=== PATIENT | female | born 1975 | race Caucasian/White ===

== ENCOUNTER 2018-09-01 06:15 | Day surgery (SDC) | payer BC ==
[2018-09-01] MEDS ORDERED: Propofol 200 MG/20 ML SDV ONE (06:58)
[2018-09-01] MEDS ORDERED: Lidocaine 2% 5 ML SDV ONE (06:58)
[2018-09-01] MEDS ORDERED: Midazolam 1 MG/ML 2 ML SDV ONE (06:58)
[2018-09-01] MEDS ORDERED: fentaNYL 100 MCG/2 ML SDV ONE (06:58)
[2018-09-01] MEDS: Lactated Ringers 1,000 ML IV SCH (07:07)
--- NOTE | 2018-09-01 07:19 | PCM.PREANE ---
Preanesthetic Assessment - Anesthesia/Transfusion/Family Hx Anesthesia History: Prior Anesthesia Without Reaction Family History of Anesthesia Reaction: No Transfusion History: Prior Transfusion Reaction Type of Transfusion Reactions: Reports: Other (see below) Other Type of Transfusion Reaction: amenia Intubation History: Unknown - Review of Systems General: No Symptoms Pulmonary: No Symptoms Cardiovascular: No Symptoms Gastrointestinal: No Symptoms Other: Reports: None - Physical Assessment NPO Status Date: 08/31/18 O2 Sat by Pulse Oximetry: 98 Respiratory Rate: 16 Vital Signs: Last Vital Signs Temp 97.5 F 09/01/18 07:06 Pulse 77 09/01/18 07:06 Resp 16 09/01/18 07:06 BP 140/78 09/01/18 07:06 Pulse Ox 98 09/01/18 07:06 Height: 4 ft 11 in Weight: 78.018 kg ASA Class: 2 Mental Status: Alert & Oriented x3 Airway Class: Mallampati = 2 Dentition: Reports: Normal Dentition ROM/Head Extension: Full Lungs: Clear to Auscultation, Normal Respiratory Effort Cardiovascular: Regular Rate, Regular Rhythm - Lab Values: Laboratory Last Values Urine HCG, Qual NEGATIVE (NEGATIVE) 09/01/18 06:50 - Allergies Allergies/Adverse Reactions: Allergies Allergy/AdvReac Type Severity Reaction Status Date / Time Penicillins Allergy Hives Verified 08/25/18 16:55 - Blood Blood Available: No - Anesthesia Plan Pre-Op Medication Ordered: None - Acknowledgements Anesthesia Type Planned: MAC Pt an Appropriate Candidate for the Planned Anesthesia: Yes Alternatives and Risks of Anesthesia Discussed w Pt/Guardian: Yes Pt/Guardian Understands and Agrees with Anesthesia Plan: Yes Additional Comments: PMH: htn, gerd PLAN: mac PreAnesthesia Questionnaire Cardiovascular History: Reports: Hypertension Respiratory History: Reports: Sleep Apnea Other Respiratory History: does not use CPAP Gastrointestinal History: Reports: GERD Other Gastrointestinal History: uses OTC meds for heartburn 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 Is checking blood sugar frequently and it has been "good" Hematologic History: Reports: Blood Transfusion(s) Other Hematologic History: had a blood transfusion in 1993 after and has been anemic since. She thinks it is from the transfusion - Past Surgical History GI Surgical History: Reports: Colonoscopy, EGD Female Surgical History: Reports: Section, Tubal Ligation Musculoskeletal Surgical History: Reports: Arthroscopic Knee - SUBSTANCE USE Smoking Status *Q: Former Smoker Tobacco Use Within Last Twelve Months: No Recreational Drug Use History: No - HOME MEDS Home Medications: Home Meds . [No Known Home Meds] 08/25/18 [History] - CURRENT (IN HOUSE) MEDS Current Meds: Current Medications Hydrocodone Bitart/Acetaminophen ([place] 325-5 Mg) 1 tab PO Q4H PRN PRN Reason: Pain Bupivacaine HCl/Epinephrine Bitart (Marcaine 0.25%/Epinephrine 1:200,000) 10 ml INJECT ONETIME ONE Stop: 09/01/18 08:01 Clindamycin Phosphate 600 mg/ (Premix) 50 mls @ 150 mls/hr IV ONETIME ONE Stop: 09/01/18 08:19 Lactated Ringer's (Ringers, Lactated) 1,000 mls @ 125 mls/hr IV ASDIRECTED ANTONIO Last Admin: 09/01/18 07:07 Dose: 125 mls/hr Discontinued Medications Fentanyl (Sublimaze) Confirm Administered Dose 100 mcg .ROUTE .STK-MED ONE Stop: 09/01/18 06:59 Lidocaine (Xylocaine-Mpf 2%) Confirm Administered Dose 5 ml .ROUTE .STK-MED ONE Stop: 09/01/18 06:59 Midazolam HCl (Versed 1 Mg/Ml) Confirm Administered Dose 2 mg .ROUTE .STK-MED ONE Stop: 09/01/18 06:59 Propofol (Diprivan 20 Ml) Confirm Administered Dose 200 mg .ROUTE .STK-MED ONE Stop: 09/01/18 06:59
[2018-09-01] MEDS ORDERED: Bupivacaine 0.25%/EPINEPHrine 1:200,000 10 ML SDV ONE (07:20)
[2018-09-01] MEDS: Clindamycin Phosphate in D5W 600 MG in Premix Bag 1 BAG IV ONE ×2 (07:23)
[2018-09-01] MEDS ORDERED: Bupivacaine 0.25%/EPINEPHrine 1:200,000 10 ML SDV INJECT ONE (08:00)
[2018-09-01] MEDS ORDERED: Acetaminophen/HYDROcodone 325-5 MG Tab PO PRN (08:00)
--- NOTE | 2018-09-01 10:09 | PCM48HPAN ---
Post Anesthesia Note - EVALUATION WITHIN 48HRS OF ANESTHETIC Vital Signs in Normal Range: Yes Patient Participated in Evaluation: Yes Respiratory Function Stable: Yes Airway Patent: Yes Cardiovascular Function Stable: Yes Hydration Status Stable: Yes Pain Control Satisfactory: Yes Nausea and Vomiting Control Satisfactory: Yes Mental Status Recovered: Yes Resp Rate: 18
--- NOTE | 2018-09-02 16:40 | PCM.OPNOTE ---
- General Post-Op/Procedure Note Date of Surgery/Procedure: 09/01/18 Operative Procedure(s): left carpal tunnel release Pre Op Diagnosis: left carpal tunnel Post-Op Diagnosis: Same Anesthesia Technique: Local, MAC Primary Surgeon: Julia Xiong Dairy Grazer: Romy Busch Complications: None Condition: Good
--- NOTE | 2018-09-02 17:22 | OR ---
SURGEON: BLANCA RAMIREZ MD DATE OF PROCEDURE: 09/01/2018 PREOPERATIVE DIAGNOSIS: Left carpal tunnel syndrome. POSTOPERATIVE DIAGNOSIS: Left carpal tunnel syndrome. PROCEDURE: Left carpal tunnel release. OVERSEER KOSHER KITCHEN: MARE Potter ANESTHESIA: Local MAC. INDICATIONS: Ms. Amato is a 42-year-old female, seen today in evaluation for left carpal tunnel syndrome. Risks and benefits were discussed with her including, but not limited to, bleeding, infection, damage to underlying or overlying structures, possible need for future interventions, and possible scarring. PROCEDURE IN DETAIL: After informed consent was obtained and placed on the chart, the patient was brought to the operating theater and laid in the supine position. After adequate local MAC anesthesia was obtained, the area was prepped and draped, and a time-out was completed to confirm side and site. Attention was then paid to transverse carpal ligament and after exsanguination of the arm and insufflation of the tourniquet, the dissection was carried through the skin and subcutaneous tissues over the transverse carpal ligament until breach of the ligament. Dissection was then carried distally and proximally under direct visualization. Once adequately released, the area was copiously irrigated with normal saline and closed with a 5-0 nylon stitch in a horizontal mattress fashion. The wound was dressed with Xeroform, fluffs, and a Kerlix gauze dressing, and a 2-inch Paolo wrap. The patient tolerated this well. All counts and needles were correct at the end of the case. FOLLOWUP INSTRUCTIONS: The patient will see us in 10 to 14 days, sooner if any problems, questions, or concerns. She was given a prescription for pain control. BARBIE / DINORA /[id number]
== END 2018-09-01 09:25 | disposition home or self-care (01) ==
LOC: MW.SDS 06:15
PROVIDERS: ATTEND Plastic Surgery
DX: G56.03 Carpal tunnel syndrome, bilateral upper limbs (principal); I10 Essential (primary) hypertension; E11.9 Type 2 diabetes mellitus without complications; D64.9 Anemia, unspecified; Z88.0 Allergy status to penicillin; Z87.891 Personal history of nicotine dependence
CPT/HCPCS: 64721; 81025; J2001; J2250; J2704; J3010; J3490; J7120

== ENCOUNTER 2018-09-15 06:27 | Day surgery (SDC) | payer BC ==
[2018-09-15] MEDS ORDERED: Propofol 200 MG/20 ML SDV ONE (07:22)
[2018-09-15] MEDS ORDERED: Lidocaine 2% 100 MG/5 ML Syringe ONE (07:23)
[2018-09-15] MEDS ORDERED: Bupivacaine 0.25%/EPINEPHrine 1:200,000 10 ML SDV ONE (07:31)
--- NOTE | 2018-09-15 07:33 | PCM.PREANE ---
Preanesthetic Assessment - Anesthesia/Transfusion/Family Hx Anesthesia History: Prior Anesthesia Without Reaction Family History of Anesthesia Reaction: No Transfusion History: Prior Transfusion Reaction Type of Transfusion Reactions: Reports: Other (see below) Other Type of Transfusion Reaction: caused chronic anemia Intubation History: Unknown - Review of Systems General: No Symptoms Pulmonary: No Symptoms Cardiovascular: No Symptoms Gastrointestinal: No Symptoms Neurological: No Symptoms Other: Reports: None - Physical Assessment Height: 1.5 m Weight: 78.018 kg ASA Class: 2 Mental Status: Alert & Oriented x3 Airway Class: Mallampati = 2 Dentition: Reports: Normal Dentition Thyro-Mental Finger Breadths: 2 Mouth Opening Finger Breadths: 2 ROM/Head Extension: Full Lungs: Clear to Auscultation, Normal Respiratory Effort Cardiovascular: Regular Rate, Regular Rhythm - Lab Values: Laboratory Last Values Urine HCG, Qual NEGATIVE (NEGATIVE) 09/15/18 07:00 - Allergies Allergies/Adverse Reactions: Allergies Allergy/AdvReac Type Severity Reaction Status Date / Time Penicillins Allergy Hives Verified 09/14/18 10:30 - Blood Blood Available: No - Anesthesia Plan Pre-Op Medication Ordered: None - Acknowledgements Anesthesia Type Planned: MAC Pt an Appropriate Candidate for the Planned Anesthesia: Yes Alternatives and Risks of Anesthesia Discussed w Pt/Guardian: Yes Pt/Guardian Understands and Agrees with Anesthesia Plan: Yes PreAnesthesia Questionnaire Cardiovascular History: Reports: Other (See Below) (BP tends to be on the low side) Respiratory History: Reports: Sleep Apnea Other Respiratory History: does not use CPAP Gastrointestinal History: Reports: GERD Other Gastrointestinal History: uses OTC meds for heartburn 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 Is checking blood sugar frequently and it has been "good" Hematologic History: Reports: Blood Transfusion(s) Other Hematologic History: had a blood transfusion in 1993 after and has been anemic since. She thinks it is from the transfusion - Past Surgical History GI Surgical History: Reports: Colonoscopy, EGD Female Surgical History: Reports: Section, Tubal Ligation Musculoskeletal Surgical History: Reports: Arthroscopic Knee, Carpal Tunnel ( left side 2 weeks ago) Other Musculoskeletal Surgeries/Procedures:: right knee arthroscopy for ligament repair - SUBSTANCE USE Smoking Status *Q: Former Smoker (quit 14 years ago) Tobacco Use Within Last Twelve Months: No Recreational Drug Use History: No - HOME MEDS Home Medications: Home Meds . [No Known Home Meds] 09/14/18 [History] - CURRENT (IN HOUSE) MEDS Current Meds: Current Medications Hydrocodone Bitart/Acetaminophen ([place] 325-5 Mg) 1 tab PO Q4H PRN PRN Reason: Pain Bupivacaine HCl/Epinephrine Bitart (Marcaine 0.25%/Epinephrine 1:200,000) 10 ml INJECT ONETIME ONE Stop: 09/15/18 08:01 Clindamycin Phosphate 600 mg/ (Premix) 50 mls @ 150 mls/hr IV ONETIME ONE Stop: 09/15/18 08:19 Lactated Ringer's (Ringers, Lactated) 1,000 mls @ 125 mls/hr IV ASDIRECTED ANTONIO Discontinued Medications Lidocaine HCl (Xylocaine 2%) Confirm Administered Dose 100 mg .ROUTE .STK-MED ONE Stop: 09/15/18 07:24 Propofol (Diprivan 20 Ml) Confirm Administered Dose 400 mg .ROUTE .STK-MED ONE Stop: 09/15/18 07:23
[2018-09-15] MEDS ORDERED: Bupivacaine 0.25%/EPINEPHrine 1:200,000 10 ML SDV INJECT ONE (08:00)
[2018-09-15] MEDS ORDERED: Clindamycin Phosphate in D5W 600 MG in Premix Bag 1 BAG IV ONE ×2 (08:00)
[2018-09-15] MEDS ORDERED: Acetaminophen/HYDROcodone 325-5 MG Tab PO PRN (08:00)
[2018-09-15] MEDS ORDERED: Lactated Ringers 1,000 ML IV SCH (08:00)
--- NOTE | 2018-09-15 15:47 | PCM.OPNOTE ---
- General Post-Op/Procedure Note Date of Surgery/Procedure: 09/15/18 Operative Procedure(s): right carpal tunnel release Pre Op Diagnosis: right carpal tunnel syndrome Post-Op Diagnosis: Same Anesthesia Technique: Local, MAC Primary Surgeon: Julia Xiong Automobile Mechanic Supervisor: Romy Busch Complications: None Condition: Good Free Text/Narrative:: Intake & Output 09/14/18 09/15/18 09/15/18 23:59 07:59 15:59 Intake Total 250 Balance 250
--- NOTE | 2018-09-15 22:44 | OR ---
SURGEON: BLANCA RAMIREZ MD DATE OF PROCEDURE: 09/15/2018 PREOPERATIVE DIAGNOSIS: Right carpal tunnel syndrome. POSTOPERATIVE DIAGNOSIS: Right carpal tunnel syndrome. PROCEDURE: Right carpal tunnel release. INTERNAL GRINDER TENDER: MARE Potter REASON FOR AND ROLE OF INTERNAL GRINDER TENDER: Retraction, prepping, draping, positioning and closure assistance. ANESTHESIA: Local MAC. INDICATIONS: Ms. Amato is a 42-year-old female seen today for right carpal tunnel release. Risks and benefits were discussed including but not limited to bleeding, infection, damage to underlying or overlying structures, possible need for future interventions, or possible scarring. PROCEDURE IN DETAIL: After informed consent was obtained placed on the chart, the patient was brought to the operating theater and laid in supine position. After adequate local MAC anesthesia was obtained, the area was prepped and draped. A time-out was completed to confirm side and site. Once adequately confirmed, the arm was exsanguinated. The tourniquet was insufflated to 200 mmHg, and dissection was carried then through the skin and subcutaneous tissues using a #15 blade. Once the ligament was breached, dissection was carried distally and proximally under direct visualization until complete release. Once adequately released, the area was irrigated and closed using a 5-0 nylon stitch in a horizontal mattress fashion. The wound was dressed with Xeroform, fluffs, and a Kerlix gauze dressing and a 2-inch Paolo wrap. The patient tolerated this well, and all counts and needles were correct at the end of the case. FOLLOWUP INSTRUCTIONS: The patient will see us in 10 to 14 days for suture removal; sooner if any problems, questions, or concerns. BARBIE / DINORA /[id number]
== END 2018-09-15 09:15 | disposition home or self-care (01) ==
LOC: MW.SDS 06:27
PROVIDERS: ATTEND Plastic Surgery
DX: G56.03 Carpal tunnel syndrome, bilateral upper limbs (principal); I10 Essential (primary) hypertension; E11.9 Type 2 diabetes mellitus without complications; E66.9 Obesity, unspecified; Z68.35 Body mass index [BMI] 35.0-35.9, adult; K21.9 Gastro-esophageal reflux disease without esophagitis; D64.9 Anemia, unspecified; G47.30 Sleep apnea, unspecified; Z87.891 Personal history of nicotine dependence; Z88.0 Allergy status to penicillin
CPT/HCPCS: 64721; 81025; J2001; J2704; J3490; J7120

== ENCOUNTER 2021-06-28 20:47 | Emergency (ER) | payer BC ==
[2021-06-29 00:06] LABS: CORONAVIRUS COVID-19 NAA POSITIVE (NEGATIVE); INFLUENZA A NAA NEGATIVE (NEGATIVE); INFLUENZA B NAA NEGATIVE (NEGATIVE)
[2021-06-29] MEDS ORDERED: Lactated Ringers 1,000 ML IV STA (00:11)
[2021-06-29] MEDS ORDERED: Ketorolac 30 MG/ML SDV IVPUSH ONE (00:11)
--- NOTE | 2021-06-29 00:29 | CR ---
INDICATION: Cough, shortness of breath TECHNIQUE: Chest radiograph 1 view COMPARISON: None FINDINGS: The sensitivity and specificity of the exam are severely limited by the patient`s body habitus. Mediastinum: The mediastinum is normal in appearance. The heart silhouette is normal in size and morphology. Lung: Patchy peripheral ground-glass opacities are present in the mid lower lung zones bilaterally, suspicious for COVID-19. No sign of pleural effusion seen. No pneumothorax is identified. Bone and Soft tissue: Unremarkable for age. IMPRESSION: 1. Patchy peripheral ground-glass opacities are present in the mid lower lung zones bilaterally, suspicious for COVID-19. Dictated by Vinny Dougherty MD @ 06/29/2021 12:26:37 AM Dictated by: Vinny Dougherty MD @ 06/29/2021 00:26:40 (Electronically Signed)
--- NOTE | 2021-06-29 01:00 | EDM.PDOC ---
ED HPI GENERAL MEDICAL PROBLEM - General Chief Complaint: Respiratory Problem Stated Complaint: FLU SYMPTOMS/COVID SYMPTOMS Time Seen by Provider: 06/28/21 23:24 - History of Present Illness INITIAL COMMENTS - FREE TEXT/NARRATIVE: CHIEF COMPLAINT(S): "I just cannot get any better." HISTORY OF PRESENT ILLNESS: This is a 45-year-old woman with a past medical history of hypertension and diabetes mellitus who comes to the emergency department with a chief complaint of "I just cannot get any better." The patient states "I just cannot get any better." The patient states that she needs help. She states that since June 15, 2021 she has been feeling sick. She states that she has been experiencing chills, body aches and dry heaving without any vomiting. She states that she is tried to eat but she just does not want to eat and is not hungry but is thirsty. She states that she does feel some short of breath but she denies any productive cough. She denies any chest pain, lower extremity edema, recent travel, recent surgery or prior history of DVT or PE. She states that she has not tried anything in the last couple of days therefore there are no relieving factors. She denies any other symptoms REVIEW OF SYSTEMS: Constitutional: Positive for fatigue and chills. Denies fever Eyes: Denies eye pain Ears, Nose, Mouth, & Throat: Denies earache Cardiovascular: Denies chest pain Respiratory: Positive for nonproductive cough and shortness of breath gastrointestinal: Positive for dry heaving. Denies Nausea, vomiting, diarrhea, hematochezia. Genitourinary: Denies hematuria Skin:Denies a rash MSK: Positive for body aches Neurological: Denies blurred vision, numbness, tingling, weakness psychiatric: Denies depression PAST MEDICAL HISTORY: As per history of present illness and as reviewed below otherwise noncontributory. SURGICAL HISTORY: As per history of present illness and as reviewed below otherwise noncontributory. SOCIAL HISTORY: As per history of present illness and as reviewed below otherwise noncontributory. FAMILY HISTORY: As per history of present illness and as reviewed below otherwise noncontributory. EXAMINATION OF ORGAN SYSTEMS/BODY AREAS: Constitutional: Blood pressure is 136/84, heart rate 99, respiratory rate 20 with an oxygen saturation of 94% on room air. General: Young woman who does not appear to be in acute distress Psychiatric: Appears apathetic with a flattened affect. Denies any SI or HI Eyes: No scleral icterus or conjunctival erythema ENMT: Dry mucous membranes. No pharyngeal erythema Cardiovascular: Regular, rate, and rhythm. No gallops, murmurs, or rubs. Bilateral upper extremity pulses symmetric and intact. No peripheral edema. No JVD. Respiratory: Lungs clear to auscultation bilaterally. No wheezes, rales, or rhonchi. Gastrointestinal: Soft, non-tender, non-distended. Normoactive bowel sounds Genitourinary: No suprapubic tenderness Musculoskeletal: Normal range of motion. Skin: No lesions or abrasions. Neurological: Alert, GCS 15 MEDICAL DECISION MAKING AND COURSE IN THE ED WITH INTERPRETATION/REVIEW OF DIAGNOSTIC STUDIES: This is a 45-year-old with man with a past medical history of diabetes mellitus and hypertension who comes to the emergency department with 2 weeks of viral-like symptoms who states that she has had decreased appetite who appears mildly dehydrated with borderline hypoxia. At this time we will provide the patient with 1 L of lactated Ringer's bolus given the dehydration on examination. We will provide the patient with Toradol for pain relief. Given her history we did obtain a x-ray and we will also obtain labs including Covid and influenza. I do not believe any further labs or imaging are indicated. The patient was amenable to this plan. DDx: COVID-19, pneumonia, influenza Laboratory: COVID is positive. Influenza negative. The radiological images were viewed by myself along with reading the report from the radiologist. Chest x-ray reveals patchy peripheral groundglass opacities in the mid and lower lung zones bilaterally. On reevaluation patient was able to tolerate p.o. The patient's vitals were normal at this time. I did discuss symptomatic treatment at home and encouraged the patient to continue with at least p.o. hydration. Patient is very apathetic and does not appear to be motivated. I did discuss with her at this time that she does not require inpatient admission and she needed to work on these things at home. Discussed if she had any worsening symptoms she should return to the emergency department. Given the duration of her symptoms the patient is not a candidate for monoclonal antibody therapy. She is amenable to discharge at this time and had no further questions DISPOSITION: The patient was discharged home in stable condition. The patient will follow up with primary care physician as soon as she is feeling better. CONDITION: Fair PROCEDURES: None FINAL IMPRESSION(S)/DIAGNOSES: 1. Acute COVID-19 pneumonia Reji Garcia M.D. - Related Data Allergies Allergy/AdvReac Type Severity Reaction Status Date / Time Penicillins Allergy Hives Verified 06/28/21 23:28 Home Meds: Home Meds . 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 Is checking blood sugar frequently and it has been "good" Hematologic History: Reports: Blood Transfusion(s) Other Hematologic History: had a blood transfusion in 1993 after and has been anemic since. She thinks it is from the transfusion - Past Surgical History GI Surgical History: Reports: Colonoscopy, EGD Female Surgical History: Reports: Section, Tubal Ligation Musculoskeletal Surgical History: Reports: Arthroscopic Knee, Carpal Tunnel Other Musculoskeletal Surgeries/Procedures:: right knee arthroscopy for ligament repair Social & Family History - Tobacco Use Second Hand Smoke Exposure: No - Caffeine Use Caffeine Use: Reports: None - Recreational Drug Use Recreational Drug Use: No ED ROS GENERAL - Review of Systems Review Of Systems: See Below ED EXAM, GENERAL - Physical Exam Exam: See Below Course - Vital Signs Last Recorded V/S: Last Vital Signs Temp 36.3 C 06/28/21 23:25 Pulse 81 06/29/21 03:30 Resp 14 06/29/21 03:30 BP 126/71 06/29/21 03:30 Pulse Ox 95 06/29/21 03:30 - Orders/Labs/Meds Labs: Laboratory Tests 06/28/21 Range/Units 23:20 Influenza Type A RNA NEGATIVE (NEGATIVE) Influenza Type B RNA NEGATIVE (NEGATIVE) SARS-CoV-2 RNA (CHRIS) POSITIVE H (NEGATIVE) Meds: Medications Discontinued Medications Generic Name Dose Route Start Last Admin Trade Name Freq PRN Reason Stop Dose Admin Lactated Ringer's 1,000 mls @ 999 mls/hr 06/29/21 00:11 06/29/21 00:40 Ringers, Lactated IV 06/29/21 01:11 999 mls/hr STAT STA Administration Ketorolac Tromethamine 30 mg 06/29/21 00:11 06/29/21 00:45 Ketorolac 30 Mg/Ml Sdv IVPUSH 06/29/21 00:12 30 mg ONETIME ONE Administration Departure - Departure Time of Disposition: 03:30 Disposition: Home, Self-Care 01 Condition: Fair Clinical Impression: COVID-19 - Discharge Information *PRESCRIPTION DRUG MONITORING PROGRAM REVIEWED*: No *COPY OF PRESCRIPTION DRUG MONITORING REPORT IN PATIENT KM: No Instructions: 10 Things You Can Do to Manage Your COVID-19 Symptoms at Home - [facility] (01/04/2021), Symptoms of COVID-19 - [facility] (08/13/2020) Referrals: PCP,None [Primary Care Provider] - Forms: ED Department Discharge Additional Instructions: You were evaluated today on an emergent basis. At this time your Covid screening was positive otherwise your chest x-ray was normal. Covid test was a PCR test which is more accurate than a rapid test. I do believe your symptoms are secondary to COVID-19. As discussed you had symptoms greater than 10 days therefore you are not a candidate for any monoclonal antibody treatment. At this time I recommend you continue with fluid hydration at home, Tylenol and Motrin for body aches and follow-up with your primary care physician. Given the duration of your symptoms and that your PCR is positive you are still likely contagious and I recommend you quarantine/isolate until you are feeling better. Please return to the emergency department if you have any worsening chest pain, shortness of breath or inability to eat or drink. [facility] - [facility] [address] [place] [address] [facility] [address] [place] [address] The patient is informed of any results of their evaluation and diagnostic workup and all questions are answered. They are given discharge instructions and return precautions. The patient is stable for discharge. The patient states they understand and agree with the plan and that they will return if their symptoms get worse or if they have any new concerns. The following information is given to patients seen in the emergency department who are being discharged to home. This information is to outline your options for follow-up care. We provide all patients seen in our emergency department with a follow-up referral. The need for follow-up, as well as the timing and circumstances, are variable depending upon the specifics of your emergency department visit. If you don't have a primary care physician on staff, we will provide you with a referral. We always advise you to contact your personal physician following an emergency department visit to inform them of the circumstance of the visit and for follow-up with them and/or the need for any referrals to a consulting specialist. The emergency department will also refer you to a specialist when appropriate. This referral assures that you have the opportunity for follow-up care with a specialist. All of these measure are taken in an effort to provide you with optimal care, which includes your follow-up. Under all circumstances we always encourage you to contact your private phys ician who remains a resource for coordinating your care. When calling for follow-up care, please make the office aware that this follow-up is from your recent emergency room visit. If for any reason you are refused follow-up, please contact the [facility] Emergency Department at and asked to speak to the emergency department charge nurse. Sepsis Event Note (ED) - Evaluation Sepsis Screening Result: No Definite Risk
== END 2021-06-29 03:30 | disposition home or self-care (01) ==
LOC: MW.ED 20:47
DX: U07.1 COVID-19 (principal); J12.82 Pneumonia due to coronavirus disease 2019; E11.9 Type 2 diabetes mellitus without complications; E66.9 Obesity, unspecified; Z88.0 Allergy status to penicillin; Z68.37 Body mass index [BMI] 37.0-37.9, adult
CPT/HCPCS: 0240U; 71045; 96374; 99285; J1885; J7120

== ENCOUNTER 2022-07-01 11:19 | Emergency (ER) | payer BC ==
[2022-07-01 12:27] LABS: CORONAVIRUS COVID-19 NAA NEGATIVE (NEGATIVE); INFLUENZA A NAA NEGATIVE (NEGATIVE); INFLUENZA B NAA NEGATIVE (NEGATIVE); RESPIRATORY SYNCYTIAL VIR NAA NEGATIVE (NEGATIVE)
[2022-07-01 13:18] LABS: CARBON DIOXIDE,CO2 21.7 mmol/L (21.0-32.0); POTASSIUM,K 3.5 mmol/L (3.5-5.1)
[2022-07-01] MEDS ORDERED: Albuterol/Ipratropium 3.0-0.5 MG/3 ML Neb Soln NEB ONE (13:38)
[2022-07-01] MEDS ORDERED: Iopamidol 755 MG/ML 500 ML Multipack Bottle IVPUSH STA (14:13)
== END 2022-07-01 15:25 | disposition home or self-care (01) ==
LOC: MW.ED 11:19 → MERGE 11:19 → MW.ED 15:25
DX: J39.1 Other abscess of pharynx (principal); E11.9 Type 2 diabetes mellitus without complications; Z88.0 Allergy status to penicillin; Z79.84 Long term (current) use of oral hypoglycemic drugs; Z20.822 Contact with and (suspected) exposure to COVID-19
CPT/HCPCS: 0241U; 36415; 71045; 71275; 80053; 84484; 85025; 93005; 99285; Q9967; 93010; 99284; J7620-GY